=== PATIENT | male | born 1960 | race Caucasian/White ===

== ENCOUNTER 2024-12-23 08:48 | Day surgery (SDC) | payer OTHER ==
[~2024-12-23] VITALS: Ht 160 cm; Wt 59.5 kg
[~2024-12-23 08:48] MED LIST: APIX5TAB PO; ATOR20TA PO; CARB-92 PO; DICL75TA5 PO; EMPA10TA3 PO; LIDOCAINE/PF 2% 5 ML SYRINGE IVP ONE; METF-910 PO; PANT-31 PO; PROPOFOL 1% 20 ML VIAL IVP ONE; SODIUM CHLORIDE 0.9% 1,000 ML ONE
[2024-12-23] MEDS: SODIUM CHLORIDE 0.9% 1,000 ML IV ONE (09:58)
[2024-12-23 13:21] LABS: GLUCOMETER DEV NAME(LOC) SDS.; GLUCOSE,POINT OF CARE 115 MG/DL (70-110)
== END 2024-12-23 14:20 | disposition home or self-care (01) ==
LOC: SURGERY 08:48
PROVIDERS: ATTEND Internal Medicine Gastroenterology
DX: R19.7 Diarrhea, unspecified (principal); R19.4 Change in bowel habit; E11.9 Type 2 diabetes mellitus without complications; K21.9 Gastro-esophageal reflux disease without esophagitis; E78.5 Hyperlipidemia, unspecified; G40.909 Epilepsy, unspecified, not intractable, without status epilepticus; I10 Essential (primary) hypertension; Z98.890 Other specified postprocedural states; Z79.899 Other long term (current) drug therapy; Z87.891 Personal history of nicotine dependence; Z86.718 Personal history of other venous thrombosis and embolism
CPT/HCPCS: 45380; 88305; 82962; J2704; J3490; J7030